=== PATIENT | male | born 1995 | race Caucasian/White ===

== ENCOUNTER 2023-12-21 17:29 | Inpatient (IN) | payer OTHER, SELFPAY ==
[2023-12-21] MEDS ORDERED: KETOROLAC 30 MG/ML INJ ONE (18:38)
[2023-12-21] MEDS ORDERED: NA CHLORIDE 0.9% 1,000 ML ONE ×3 (18:38→20:11)
[2023-12-21] MEDS ORDERED: ONDANSETRON 4 MG/2 ML VIAL ONE ×3 (18:38→20:10)
[2023-12-21 18:50] LABS: Absolute Basophils 0.1 K/uL (0-0.5); Absolute Lymphocytes (CBC) 1.4 K/uL (0.7-4.9); Absolute Monocytes 0.9 K/uL (0.1-1.3); Absolute Neutrophil 11.9 K/uL (1.8-8.0); Hematocrit 59.4 % (39.6-49.0); Hemoglobin 20.7 g/dL (13.6-17.9); Lymphocytes % 9.5 % (15.3-44.8); MCH 30.1 pg (27.0-35.0); MCHC 34.8 g/dL (32.0-36.0); MCV 86.6 fL (80-100); MPV 8.2 fL (7.6-11.3); Neutrophils % 83.5 % (41.7-73.7); Nucleated RBC Absolute Count 0.2 (0-0); Nucleated Red Blood Cells % 1.2 % (0-0); Platelets 441 thou/uL (152-406); RBC Red Blood Cell Count 6.86 M/uL (4.33-5.43); Red Cell Distribution Width 12.8 % (12.1-15.2)
[2023-12-21 19:22] LABS: Albumin 5.8 g/dL (3.4-5.0); Albumin/Globulin Ratio 1.2 (1.1-1.8); Anion Gap 19.6 mEq/L (5.0-15.0); Bilirubin Total 2.6 mg/dL (0.2-1.0); Globulin 4.9 g/dL (2.3-3.5); Magnesium 2.8 mg/dL (1.6-2.4); Potassium 3.6 mEq/L (3.5-5.1); Protein, Total 10.7 g/dL (6.4-8.2); Troponin High Sensitivity 6.2 pg/mL (<58.9)
[2023-12-21 19:42] LABS: Band Neutrophils 4 % (0-1); Differential Total Cells Count 100; Lymphocytes 5 % (15-42); Monocytes 5 % (0-10); Reactive Lymphocytes 6 %; Segmented Neutrophils 80 % (40-80)
[2023-12-21 19:43] LABS: Blood Morphology Comment NOT SEEN (NOT SEEN); Platelet Estimate ADEQ
--- NOTE | 2023-12-21 20:01 | RAD REPORT ---
EXAM DESCRIPTION: CT - Abdomen Pelvis Wo Contrast - 12/21/2023 7:44 pm CLINICAL HISTORY: Abdominal pain COMPARISON: None TECHNIQUE: Computed axial tomography of the abdomen and pelvis was obtained. IV and oral contrast we re not requested. All CT scans are performed using dose optimization technique as appropriate and may include automated exposure control or mA/KV adjustment according to patient size. FINDINGS: The evaluation of solid organs, vessels and bowel is limited secondary to the lack of con trast administration. The liver, spleen, pancreas, adrenals and kidneys appear grossly normal. The appendix is normal. There is no evidence of diverticulitis. Small left inguinal hernia. Tiny umbilical hernia Mild anterior subluxation of L5 on S1. Spondylolysis L5 IMPRESSION: No acute abnormality is displayed.
[2023-12-21] MEDS ORDERED: ONDANSETRON 4 MG/2 ML VIAL IV PRN (20:10)
[2023-12-21] MEDS ORDERED: ACETAMINOPHEN 325 MG TABLET PO PRN (20:10)
--- NOTE | 2023-12-21 20:10 | P.HP ---
Certification for Inpatient Patient admitted to: Inpatient With expected LOS: >2 Midnights Practitioner: I am a practitioner with admitting privileges, knowledge of patient current condition, hospital course, and medical plan of care. Services: Services provided to patient in accordance with Admission requirements found in Title 42 Section 412.3 of the Code of Federal Regulations Patient History Date of Service: 12/21/23 Reason for admission: Intractable nausea and vomiting History of Present Illness: 28 yrs old Male with no significant past medical history complaints of Body cramping and intractable nausea and vomiting and decreased urination which has been going on for the last 1 week and has been progressively getting worse. States he has not been able to tolerate anything by mouth over the last 4 days and has been working outside. No alleviating or aggravating factors . No fever or chills. Patient was assessed in the ER and is admitted for further management of rhabdomyolysis Allergies No Known Allergies Allergy (Unverified 10/27/11 01:50) Home medications list reviewed: Yes Home Medications: NK [No Home Meds] 12/21/23 - Past Medical/Surgical History Past Medical History: Reviewed- Non-Contributory Past Surgical History: Reviewed- Non-Contributory - Family History Family History: Reviewed- Non-Contributory - Social History Smoking Status: Never smoker Review of Systems 10-point ROS is otherwise unremarkable Physical Examination - Vital Signs Temperature: 97.2 F Blood Pressure: 142/100 Pulse: 110 Respirations: 18 Pulse Ox (%): 94 - Physical Exam General: Alert, In no apparent distress, Oriented x3 HEENT: Atraumatic, Normocephalic Neck: Supple, JVD not distended Respiratory: Clear to auscultation bilaterally, Normal air movement Cardiovascular: Regular rate/rhythm, Normal S1 S2 Capillary refill: <2 Seconds Gastrointestinal: Soft and benign, W/out hepatosplenomegaly, No ascites Musculoskeletal: No clubbing, No swelling Integumentary: No rashes, No tenderness/swelling Neurological: Normal speech, Normal strength at 5/5 x4 extr Lymphatics: No axilla or inguinal lymphadenopathy - Studies Laboratory Data (last 24 hrs) 12/21/23 12/21/23 18:20 18:20 WBC 14.30 H Hgb 20.7 H Hct 59.4 H Plt Count 441 H Sodium 131 L Potassium 3.6 BUN 41 H Creatinine 3.17 H Glucose 125 H Magnesium 2.8 H Total Bilirubin 2.6 H AST 31 ALT 60 Alkaline Phosphatase 102 Lipase 19 Assessment and Plan - Plan Intractable nausea and vomiting Monitor closely under telemetry Aggressive hydration Monitor renal parameters Acute kidney injury Monitor renal parameters Electrolytes monitor and replace accordingly Dehydration Aggressive hydration Rhabdomyolysis Monitor total Creatinine kinase Aggressive hydration Pain control Muscle relaxant Hypercalcemia Elevated LFTs Hyponatremia Electrolytes monitor and replace accordingly Aggressive hydration GI/DVT prophylaxis Advanced directive full code Discharge Plan: Home Plan to discharge in: 48 Hours - Advance Directives Does patient have a Living Will: No Does patient have a Durable POA for Healthcare: No - Code Status/Comfort Care Code Status: Full Code Time Spent Managing Pts Care (In Minutes): 48
--- NOTE | 2023-12-21 20:11 | EDPHYS ---
Physician Documentation [facility] Name: Julio C Joseph Age: 28 yrs Sex: Male : 1995 Arrival Date: 12/21/2023 Time: 17:29 Bed 4 Private MD: ED Physician Giovanni Lugo HPI: 12/20 20:39 This 28 yrs old Male presents to ER via Ambulatory with complaints of Body cramping. kb 20:39 Patient is a 28-year-old male who presents for muscle cramps, nausea, vomiting, kb decreased urination for 4 days. States he has not been able to tolerate anything by mouth over the last 4 days and has been working outside. No alleviating or aggravating factors . Historical: - Allergies: 18:14 No Known Allergies; cm10 - Home Meds: 18:14 None [Active]; cm10 - PMHx: 18:14 None; cm10 - PSHx: 18:14 None; cm10 - Immunization history:: Adult Immunizations up to date. - Infectious Disease History:: Denies. - Social history:: Smoking status: Reported history of juuling and/or vaping. ROS: 19:47 Constitutional: As per HPI kb Exam: 19:46 Constitutional: This is a well developed, well nourished patient who is awake, alert, kb and in no acute distress. Head/Face: Normocephalic, atraumatic. ENT: Moist Mucous membranes Cardiovascular: Regular rate Respiratory: Respirations even and unlabored. No increased work of breathing. Talking in full sentences Abdomen/GI: Soft, non-tender. No distention Skin: Warm, dry with normal turgor. Normal color. MS/ Extremity: Pulses equal, no cyanosis. Neurovascular intact. Full, normal range of motion. Neuro: Awake and alert, GCS 15, oriented to person, place, time, and situation. Moves all extremities. Normal gait. 19:46 ECG was reviewed by the Attending Physician. Vital Signs: 18:13 BP 143 / 100; Pulse 120; Resp 19; Temp 96.8; Pulse Ox 98% ; Weight 108.86 kg; Height 6 cm10 ft. 3 in. ; Pain 10/10; 19:10 BP 121 / 77; Pulse 79; Resp 17; Temp 97; Pulse Ox 99% ; Pain 2/10; me1 20:00 BP 121 / 77; Pulse 76; Resp 15; Pulse Ox 98% on R/A; me1 20:52 BP 139 / 96; Pulse 88; Resp 16; Pulse Ox 97% on R/A; me1 18:13 Body Mass Index 30.00 (108.86 kg, 190.5 cm) cm10 18:13 Pain Scale: Adult cm10 19:10 Pain Scale: Adult me1 Erum Coma Score: 20:23 Eye Response: spontaneous(4). Motor Response: obeys commands(6). Verbal Response: bm8 oriented(5). Total: 15. MDM: 17:40 Patient medically screened. kb 20:38 Differential diagnosis: dehydration, rhabdomyolysis, abnormal electrolytes. Data kb reviewed: vital signs, nurses notes. Consideration of Admission/Observation Patient was admitted/placed on observation. Escalation of care including admission/observation considered. Management of patient was discussed with the following: Hospitalist: Dr Archer accepts pt for admission. Counseling: I had a detailed discussion with the patient and/or guardian regarding the historical points, exam findings, and any diagnostic results supporting the discharge/admit diagnosis, lab results, radiology results, the need for further work-up and treatment in the hospital. 20:39 Historians other than the Patient: Parent: father. kb 12/20 18:14 Order name: CBC with Diff; Complete Time: 19:45 kb 12/20 18:14 Order name: CMP; Complete Time: 19:22 kb 12/20 18:14 Order name: Lipase; Complete Time: 19:22 kb 12/20 18:14 Order name: Magnesium; Complete Time: 19:22 kb 12/20 18:35 Order name: Creatine Phosphokinase; Complete Time: 19:22 EDMS 12/20 18:35 Order name: Troponin High Sensitivity; Complete Time: 19:22 EDMS 12/20 18:53 Order name: Manual Differential; Complete Time: 19:45 EDMS 12/20 20:15 Order name: Urinalysis w/ reflexes EDMS 12/20 20:15 Order name: CBC with Automated Diff EDMS 12/20 20:15 Order name: CBC with Automated Diff EDMS 12/20 20:15 Order name: Comprehensive Metabolic Panel EDMS 12/20 20:15 Order name: Comprehensive Metabolic Panel EDMS 12/20 19:27 Order name: Abdomen ; Complete Time: 20:03 EDMS 12/20 20:15 Order name: CONS Physician Consult EDMS 12/20 18:14 Order name: IV Saline Lock; Complete Time: 18:23 kb 12/20 18:14 Order name: Labs collected and sent; Complete Time: 18:23 kb 12/20 18:27 Order name: EKG - Nurse/Tech; Complete Time: 19:19 kb EC:46 Rate is 84 beats/min. Rhythm is regular. QRS [place] is Normal. MA interval is normal at kb 140 msec. QRS interval is normal at 86 msec. QT interval is normal at 432 msec. Administered Medications: 18:40 Drug: NS 0.9% IV 1000 ml IV at 1 bolus Per protocol; 1000 mL bolus Route: IV; Rate: 1 nj1 bolus; Site: left antecubital; 20:16 Follow up: Response: No adverse reaction; IV Status: Completed infusion; IV Intake: bm8 1000ml 18:40 Drug: Ondansetron IVP 4 mg IVP once; over 2 minutes Route: IVP; Site: left antecubital; nj1 20:16 Follow up: Response: No adverse reaction; Nausea is decreased me1 18:42 Drug: TORadol - Ketorolac IVP 15 mg IVP once Route: IVP; Site: left antecubital; nj1 20:16 Follow up: Response: No adverse reaction; Pain is decreased me1 20:16 Drug: NS 0.9% IV 1000 ml IV at 1000 ml once Route: IV; Rate: 1000 ml; Site: left ky1 antecubital; 21:03 Follow up: Response: No adverse reaction; IV Status: Completed infusion; IV Intake: bm8 1000ml 20:16 Drug: Ondansetron IVP 4 mg IVP once; over 2 minutes Route: IVP; Site: left antecubital; me1 20:16 Follow up: Response: No adverse reaction bm8 Disposition Summary: 12/21/23 20:11 Hospitalization Ordered Notes: Hospitalization Status: Observation kb Provider: Chirag Archer Location: Telemetry/MedSurg (observation) kb Condition: Stable kb Problem: new kb Symptoms: are unchanged kb Bed/Room Type: Standard Room Assignment: 205(12/21/23 20:53) af3 Diagnosis - Dehydration kb - Acute kidney failure, unspecified kb Forms: - Medication Reconciliation Form kb - SBAR form kb - Leadership Thank You Letter kb Critical care time excluding procedures: 12/21 00:32 Critical care time: Bedside Care: 20 minutes, Consultation: 10 minutes. Total time: 30 kb minutes Signatures: Dispatcher [employer] EDGraciela Cha, DEVULCANIZER OPERATOR-C DEVULCANIZER OPERATOR-Reina Garay RN RN nj1 Lizy Hardwick RN RN cm10 Sheila Garcia RN RN me1 Catie Ribeiro af3 Valentin Alfaro RN bm8 Corrections: (The following items were deleted from the chart) 12/20 18:14 18:14 Allergies: Aspirin; cm10 cm10 18:35 18:27 CREATINE PHOSPHOKINASE+C.LAB.BRZ ordered. EDMS EDMS 18:35 18:27 Troponin High Sensitivity+C.LAB.BRZ ordered. EDMS EDMS 19:27 18:14 Abdomen Pelvis W Con+CT.RAD.BRZ ordered. EDMS EDMS 20:53 20:11 kb af3
--- NOTE | 2023-12-21 20:11 | ER ---
Nurse's Notes [facility] Name: Julio C Joseph Age: 28 yrs Sex: Male : 1995 Arrival Date: 12/21/2023 Time: 17:29 Bed 4 Private MD: Diagnosis: Dehydration;Acute kidney failure, unspecified Presentation: 12/20 18:13 Chief complaint: Patient states: Generalized body cramps, and abdominal pain onset 4 cm10 days ago. Pt states that he has been working out in the heat. Coronavirus screen: Client denies travel out of the [place] in the last 14 days. At this time, the client does not indicate any symptoms associated with coronavirus-19. Ebola Screen: Patient denies travel to an Ebola-affected area in the 21 days before illness onset. No symptoms or risks identified at this time. Initial Sepsis Screen: Does the patient meet any 2 criteria? HR > 90 bpm. Does the patient have a suspected source of infection? No. Patient's initial sepsis screen is negative. Risk Assessment: Do you want to hurt yourself or someone else? Patient reports no desire to harm self or others. Onset of symptoms was December 21, 2023. 18:13 Method Of Arrival: Ambulatory cm10 18:13 Acuity: LUPE 3 cm10 Triage Assessment: 18:14 General: Appears in no apparent distress. uncomfortable, Behavior is calm, cooperative. cm10 Neuro: No deficits noted. Level of Consciousness is awake, alert, obeys commands, Oriented to person, place, time, situation, Appropriate for age. Respiratory: No deficits noted. Airway is patent Respiratory effort is even, unlabored, Respiratory pattern is regular, symmetrical. Historical: - Allergies: 18:14 No Known Allergies; cm10 - Home Meds: 18:14 None [Active]; cm10 - PMHx: 18:14 None; cm10 - PSHx: 18:14 None; cm10 - Immunization history:: Adult Immunizations up to date. - Infectious Disease History:: Denies. - Social history:: Smoking status: Reported history of juuling and/or vaping. Screenin:40 [facility] ED Fall Risk Assessment (Adult) History of falling in the last 3 months, nj1 including since admission No falls in past 3 months (0 pts) Confusion or Disorientation No (0 pts) Intoxicated or Sedated No (0 pts) Impaired Gait No (0 pts). 18:40 [facility] ED Fall Risk Assessment (Adult) Mobility Assist Device Used No (0 pt) Altered nj1 Elimination No (0 pt) Score/Fall Risk Level 0 - 2 = Low Risk Oriented to surroundings, Maintained a safe environment, Hourly rounding (assess needs \T\ fall precautionary measures) done. Abuse screen: Denies threats or abuse. Denies injuries from another. Nutritional screening: No deficits noted. Tuberculosis screening: No symptoms or risk factors identified. Assessment: 18:40 General: Appears in no apparent distress. uncomfortable, Behavior is calm, cooperative, nj1 appropriate for age. 18:40 Pain: Complains of pain in abdomen Pain currently is 8 out of 10 on a pain scale. nj1 Neuro: Level of Consciousness is awake, alert, obeys commands, Oriented to person, place, time, situation. Cardiovascular: Patient's skin is warm and dry. Respiratory: Airway is patent Respiratory effort is even, unlabored. GI: Pt is actively vomiting Reports nausea, vomiting. 20:23 Reassessment: Patient appears in no apparent distress at this time. Patient and/or bm8 family updated on plan of care and expected duration. Pain level reassessed. Patient is alert, oriented x 3, equal unlabored respirations, skin warm/dry/pink. Patient states symptoms have improved. GI: Pt is actively vomiting clear fluid, Reports nausea, vomiting. Vital Signs: 18:13 BP 143 / 100; Pulse 120; Resp 19; Temp 96.8; Pulse Ox 98% ; Weight 108.86 kg; Height 6 cm10 ft. 3 in. ; Pain 10/10; 19:10 BP 121 / 77; Pulse 79; Resp 17; Temp 97; Pulse Ox 99% ; Pain 2/10; me1 20:00 BP 121 / 77; Pulse 76; Resp 15; Pulse Ox 98% on R/A; me1 20:52 BP 139 / 96; Pulse 88; Resp 16; Pulse Ox 97% on R/A; me1 18:13 Body Mass Index 30.00 (108.86 kg, 190.5 cm) cm10 18:13 Pain Scale: Adult cm10 19:10 Pain Scale: Adult me1 Erum Coma Score: 20:23 Eye Response: spontaneous(4). Motor Response: obeys commands(6). Verbal Response: bm8 oriented(5). Total: 15. ED Course: 17:34 Patient arrived in ED. ra3 17:40 Graciela Plata FNP-C is [facility]. kb 17:40 Giovanni Lugo MD is Attending Physician. kb 18:14 Triage completed. cm10 18:15 Arm band placed on Patient placed in waiting room. cm10 18:23 Magnesium Sent. bc6 18:23 CBC with Diff Sent. bc6 18:23 CMP Sent. bc6 18:23 Lipase Sent. bc6 18:23 Initial lab(s) drawn, by me, sent to lab. Inserted saline lock: 20 gauge in left bc6 antecubital area, using aseptic technique. Blood collected. Flushed with 10 mL NS. 18:33 Reina Yoo, RN is Primary Nurse. nj1 18:40 Patient has correct armband on for positive identification. Bed in low position. Call nj1 light in reach. Adult w/ patient. Provided Education on: call light, fall precautions. 19:00 Report given to Sheila WESTFALL. nj1 19:19 EKG done, by ED staff, reviewed by Graciela CROWELL. me1 19:46 Abdomen In Process Unspecified. EDMS 20:10 Chirag Archer MD is Hospitalizing Provider. kb 20:23 Valentin Alfaro, RN is Primary Nurse. bm8 20:23 Client placed on continuous cardiac and pulse oximetry monitoring. NIBP monitoring bm8 applied. Pulse ox on. NIBP on. 20:23 No provider procedures requiring assistance completed. bm8 20:23 Patient admitted, IV remains in place. bm8 21:04 Provided Education on: need for admit. bm8 Administered Medications: 18:40 Drug: NS 0.9% IV 1000 ml IV at 1 bolus Per protocol; 1000 mL bolus Route: IV; Rate: 1 nj1 bolus; Site: left antecubital; 20:16 Follow up: Response: No adverse reaction; IV Status: Completed infusion; IV Intake: bm8 1000ml 18:40 Drug: Ondansetron IVP 4 mg IVP once; over 2 minutes Route: IVP; Site: left antecubital; nj1 20:16 Follow up: Response: No adverse reaction; Nausea is decreased me1 18:42 Drug: TORadol - Ketorolac IVP 15 mg IVP once Route: IVP; Site: left antecubital; ca1 20:16 Follow up: Response: No adverse reaction; Pain is decreased [facility] 20:16 Drug: NS 0.9% IV 1000 ml IV at 1000 ml once Route: IV; Rate: 1000 ml; Site: left sc1 antecubital; 21:03 Follow up: Response: No adverse reaction; IV Status: Completed infusion; IV Intake: bm8 1000ml 20:16 Drug: Ondansetron IVP 4 mg IVP once; over 2 minutes Route: IVP; Site: left antecubital; sc1 20:16 Follow up: Response: No adverse reaction bm8 Medication: 20:23 VIS not applicable for this client. bm8 Intake: 20:16 IV: 1000ml; Total: 1000ml. bm8 21:03 IV: 1000ml; Total: 2000ml. bm8 Outcome: 20:11 Decision to Hospitalize by Provider. kb 21:04 Admitted to Med/surg accompanied by nurse, via wheelchair, room 205, bm8 21:04 Condition: stable 21:04 Instructed on the need for admit, Demonstrated understanding of instructions, follow-up care, 21:05 Patient left the ED. bm8 Signatures: Dispatcher [employer] EDGraciela Cha, GLASS BENDER-C GLASS BENDER-CkDonna Arrieta bc6 Reina Yoo, RN RN nj1 Lizy Hardwick RN RN cm10 Sheila Garcia RN RN me1 Cathy Connell ra3 Valentin Alfaro RN RN bm8 Corrections: (The following items were deleted from the chart) 18:14 18:14 Allergies: Aspirin; cm10 cm10 20:53 20:23 BP 121 / 77; Pulse 79bpm; Resp 17bpm; Pulse Ox 99%; Temp 97F; Pain 2/10, Adult; sc1 bm8
[2023-12-21] MEDS ORDERED: SODIUM CHLORIDE 0.9% 10ML INJ IV PRN (21:27)
[2023-12-21] MEDS ORDERED: HYDROCODONE/APAP 5/325 MG TAB PO PRN (21:37)
[2023-12-21] MEDS ORDERED: MORPHINE 2 MG/ML SYR IV PRN (21:37)
[2023-12-21] MEDS: PANTOPRAZOLE 40 MG INJ IVP SCH (21:47)
[2023-12-21] MEDS: METOCLOPRAMIDE 10 MG/2mL INJ IV PRN (21:47)
[2023-12-21] MEDS: NA CHLORIDE 0.9% 1,000 ML IV ONE (21:47)
[2023-12-21] MEDS: HEPARIN 5000 UNIT/ML 1 ML VIAL SQ SCH (21:48)
[2023-12-21 22:02] VITALS: BMI 29.9
[2023-12-21] MEDS: NA CHLORIDE 0.9% 1,000 ML IV SCH (22:40)
[2023-12-22 05:49] LABS: Absolute Basophils 0.1 K/uL (0-0.5); Absolute Eosinophils 0.1 K/uL (0-0.5); Absolute Lymphocytes (CBC) 2.2 K/uL (0.7-4.9); Absolute Monocytes 1.5 K/uL (0.1-1.3); Absolute Neutrophil 7.1 K/uL (1.8-8.0); Basophils % 0.7 % (0-1.3); Eosinophils % 0.9 % (0-4.4); Hematocrit 47.7 % (39.6-49.0); Hemoglobin 16.7 g/dL (13.6-17.9); Lymphocytes % 20.3 % (15.3-44.8); MCV 88.5 fL (80-100); Monocytes % 13.5 % (3.3-12.3); Neutrophils % 64.6 % (41.7-73.7); Nucleated Red Blood Cells % 0.2 % (0-0); Platelets 282 thou/uL (152-406); RBC Red Blood Cell Count 5.38 M/uL (4.33-5.43); Red Cell Distribution Width 12.9 % (12.1-15.2)
[2023-12-22 06:00] LABS: Specific Gravity 1.026 (1.005-1.030); Sqamous Epithelial <5 /HPF (None Seen); Urine Bacteria <20 /HPF (<20); Urine Bilirubin NEGATIVE (Negative); Urine Blood Negative (Negative); Urine Clarity Extremely Turbid (Clear); Urine Color Yellow (Yellow); Urine Culture Reflex Order NOT NEEDED; Urine Glucose NEGATIVE (Negative); Urine Ketones 1+ (Negative); Urine Microscopic Reflex YN ORDER UMIC; Urine Mucus 2+ /HPF (None Seen); Urine Nitrite NEGATIVE (Negative); Urine Protein 1+ (Negative); Urine RBC None Seen /HPF (None Seen); Urine Urobilinogen Normal (Normal); Urine WBC <5 /HPF (<5); Urine pH 5.5 (5.0-7.0)
[2023-12-22 06:14] LABS: Albumin 4.1 g/dL (3.4-5.0); Albumin/Globulin Ratio 1.2 (1.1-1.8); Anion Gap 11.4 mEq/L (5.0-15.0); Bilirubin Total 2.4 mg/dL (0.2-1.0); Globulin 3.3 g/dL (2.3-3.5); Potassium 3.4 mEq/L (3.5-5.1); Protein, Total 7.4 g/dL (6.4-8.2)
[2023-12-22] MEDS: POTASSIUM 25 MEQ EFFERV TAB PO ONE (08:10)
--- NOTE | 2023-12-22 08:43 | P.PN ---
Date of Service: 12/22/23 Subjective Review of Systems 10-point ROS is otherwise unremarkable Physical Examination - Vital Signs reviewed - Physical Exam General: Alert, In no apparent distress, Oriented x3 HEENT: Atraumatic, Normocephalic Neck: Supple, JVD not distended Respiratory: Clear to auscultation bilaterally, Normal air movement Cardiovascular: Regular rate/rhythm, Normal S1 S2 Capillary refill: <2 Seconds Gastrointestinal: Soft and benign, W/out hepatosplenomegaly, No ascites Musculoskeletal: No clubbing, No swelling Integumentary: No rashes, No tenderness/swelling Neurological: Normal speech, Normal strength at 5/5 x4 extr Lymphatics: No axilla or inguinal lymphadenopathy Assessment and Plan - Plan Intractable nausea and vomiting Dehydration Rhabdomyolysis Acute kidney injury Monitor closely under telemetry Aggressive hydration Monitor renal parameters Monitor renal parameters Electrolytes monitor and replace accordingly Aggressive hydration Monitor total Creatinine kinase Pain control Muscle relaxant Hypercalcemia Elevated LFTs Hyponatremia Electrolytes monitor and replace accordingly Aggressive hydration GI/DVT prophylaxis Advanced directive full code Discharge Plan: Home Plan to discharge in: 48 Hours - Advance Directives Does patient have a Living Will: No Does patient have a Durable POA for Healthcare: No - Code Status/Comfort Care Code Status: Full Code Time Spent Managing Pts Care (In Minutes): 35
--- NOTE | 2023-12-22 08:45 | P.DS ---
Admission Date: 12/21/23 Discharge Date: 12/22/23 Disposition: ROUTINE DISCHARGE Reason for Admission: Intractable nausea and vomiting Brief History of Present Illness: 28 yrs old Male with no significant past medical history complaints of Body cramping and intractable nausea and vomiting and decreased urination which has been going on for the last 1 week and has been progressively getting worse. States he has not been able to tolerate anything by mouth over the last 4 days and has been working outside. No alleviating or aggravating factors . No fever or chills. Patient was assessed in the ER and is admitted for further management of rhabdomyolysis - Physical Exam General: Alert, In no apparent distress, Oriented x3 HEENT: Atraumatic, Normocephalic Neck: Supple, JVD not distended Respiratory: Clear to auscultation bilaterally, Normal air movement Cardiovascular: Regular rate/rhythm, Normal S1 S2 Capillary refill: <2 Seconds Gastrointestinal: Soft and benign, W/out hepatosplenomegaly, No ascites Musculoskeletal: No clubbing, No swelling Integumentary: No rashes, No tenderness/swelling Neurological: Normal speech, Normal strength at 5/5 x4 extr Lymphatics: No axilla or inguinal lymphadenopathy Hospital Course: 28 yrs old Male with no significant past medical history complaints of Body cramping and intractable nausea and vomiting and decreased urination which has been going on for the last 1 week and has been progressively getting worse. States he has not been able to tolerate anything by mouth over the last 4 days and has been working outside. He was admitted for dehydration, rhabdomyolysis, intractable nausea vomiting. Symptoms improved with IV fluids, as needed antiemetics. Patient is tolerating diet, plan to discharge home, follow-up with primary care in 1 week. Discharge medications As needed antiemetics Zofran as needed for nausea As needed analgesics May take [id number] Tylenol ibuprofen for pain Encourage electrolyte, p.o. intake with IV fluids when working outside Continue home medicines as previously prescribed GOAL: Clear understanding of disease process INSTRUCTIONS: Physician Discharge Instructions: -Follow-up with PCP in 1 to 2 weeks -Please call Dr. Davis at [phone] if any questions regarding hospital stay -Please call nursing station at [phone] if any nursing or medication questions -Return to the emergency room if symptoms worsen Diet: ADA, low sodium Activity: Fall precautions Vital Signs/Physical Exam: Temp Pulse Resp BP Pulse Ox 98 F 81 16 150/78 H 97 12/22/23 04:00 12/22/23 04:00 12/22/23 04:00 12/22/23 04:00 12/22/23 04:00 Laboratory Data at Discharge: WBC 10.90 thou/uL (4.3-10.9) 12/22/23 05:35 Hgb 16.7 g/dL (13.6-17.9) D 12/22/23 05:35 Hct 47.7 % (39.6-49.0) 12/22/23 05:35 Plt Count 282 thou/uL (152-406) D 12/22/23 05:35 Sodium 136 mEq/L (136-145) D 12/22/23 05:35 Potassium 3.4 mEq/L (3.5-5.1) L 12/22/23 05:35 BUN 30 mg/dL (7-18) H 12/22/23 05:35 Creatinine 1.56 mg/dL (0.70-1.30) H 12/22/23 05:35 Glucose 92 mg/dL (74-106) 12/22/23 05:35 Magnesium 2.8 mg/dL (1.6-2.4) H 12/21/23 18:20 Total Bilirubin 2.4 mg/dL (0.2-1.0) H 12/22/23 05:35 AST 30 U/L (15-37) 12/22/23 05:35 ALT 41 U/L (16-61) 12/22/23 05:35 Alkaline Phosphatase 66 U/L (45-117) D 12/22/23 05:35 Lipase 19 U/L (13-75) 12/21/23 18:20 Home Medications: NK [No Home Meds] 12/21/23 Diet: AHA Activity: Fall precautions Followup: NONE,NONE [Primary Care Provider] - Time spent managing pt's care (in minutes): 45
[2023-12-22 11:19] LABS: Anion Gap 4.8 mEq/L (5.0-15.0); Potassium 3.8 mEq/L (3.5-5.1)
[2023-12-22 11:20] LABS: Albumin 3.9 g/dL (3.4-5.0); Albumin/Globulin Ratio 1.3 (1.1-1.8); Anion Gap 7.8 mEq/L (5.0-15.0); Bilirubin Total 2.3 mg/dL (0.2-1.0); Globulin 3.1 g/dL (2.3-3.5); Potassium 3.8 mEq/L (3.5-5.1)
[2023-12-22 11:26] VITALS: O2SAT 98
[2023-12-22 12:04] VITALS: BP 154/69; TEMP 98.3
--- NOTE | 2023-12-23 13:49 | EKG ---
Test Date: 2023-12-21 Test Time: 19:15:48 Dispensing Optician Apprentice: MEASUREMENT RESULTS: Intervals: Rate: 84 WY: 140 QRSD: 86 QT: 366 QTc: 432 [place]: P: -22 WY: 140 QRS: 72 T: 53 INTERPRETIVE STATEMENTS: Normal sinus rhythm Nonspecific ST abnormality Abnormal ECG Compared to ECG 01/17/2007 07:57:22 ST (T wave) deviation now present Electronically Signed On 12-23-23 13:45:22 CDT by Rasheed Schmid
== END 2023-12-22 14:59 | disposition home or self-care (01) | DRG 558 ==
LOC: ER 17:29 → ERHOLD 20:10 → 2ND 20:55
PROVIDERS: ADMIT Family Medicine; ATTEND Hospitalist
DX: M62.82 Rhabdomyolysis (principal); N17.9 Acute kidney failure, unspecified; E87.1 Hypo-osmolality and hyponatremia; E86.0 Dehydration; E83.52 Hypercalcemia; R79.89 Other specified abnormal findings of blood chemistry
CPT/HCPCS: 36415; 74176; 80048; 80053; 81001; 82550; 83690; 83735; 84484; 85025; 93005; 96361; 96374; 96375; 99285; J1644; J2405; J2470; J2765; J7030